=== PATIENT | male | born 2005 | race Caucasian/White ===

== ENCOUNTER 2024-06-24 10:11 | Emergency (ER) | payer OTHER ==
[~2024-06-24] VITALS: Ht 180.3 cm; Wt 72.6 kg
[2024-06-24] MEDS ORDERED: Rabies Vaccine (Pcec)/Pf 1 mL 2.5 Unit Kit IM ONE (10:35)
== END 2024-06-24 11:31 | disposition home or self-care (01) ==
LOC: ER 10:11
DX: Z29.14 Encounter for prophylactic rabies immune globulin (principal); Z20.3 Contact with and (suspected) exposure to rabies; T14.8XXD Other injury of unspecified body region, subsequent encounter; W55.8 Contact with other mammals